=== PATIENT | female | born 2000 | race African-American/Black ===

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

== ENCOUNTER 2024-09-20 00:32 | Emergency (ER) | payer SELFPAY ==
[~2024-09-20] VITALS: Ht 165.1 cm; Wt 54.0 kg
[2024-09-20 00:49] VITALS: O2SAT 98
[2024-09-20] MEDS: LIDOCAINE 5% PATCH TOP SCH (02:36)
[2024-09-20] MEDS: KETOROLAC 15MG/ML VIAL IM ONE (02:36)
[2024-09-20] MEDS ORDERED: IBUP-2028 MT (03:33)
[2024-09-20] MEDS ORDERED: LIDO700A30 TP (03:33)
[2024-09-20 04:10] VITALS: BP 105/72; PULSE 78; RESP 13; TEMP 36.7; O2SAT 100
== END 2024-09-20 04:12 | disposition home or self-care (01) ==
LOC: ER 00:45
DX: S86.812A Strain of other muscle(s) and tendon(s) at lower leg level, left leg, initial encounter (principal); V89.2XXA Person injured in unspecified motor-vehicle accident, traffic, initial encounter; Y93.9 Activity, unspecified; Y92.410 Unspecified street and highway as the place of occurrence of the external cause; Y99.8 Other external cause status
CPT/HCPCS: 73590; 96372; 99283; J1885; Z7610